=== PATIENT | female | born 1990 | race American Indian/Alaskan Native ===

== ENCOUNTER 2020-08-30 15:56 | Emergency (ER) | payer SELFPAY ==
[2020-08-30 17:24] LABS: Bacteria,Urine 1+ /HPF (Negative); Bilirubin,Urine NEG (Negative); Blood,Urine NEG (Negative); Color,Urine Yellow (Yellow); Protein,Urine <15 mg/dL mg/dL (Negative); Urobilinogen,Urine < 2.0 mg/dL (<2.0)
[2020-08-30 17:31] LABS: HCG Qualitative,Urine Negative (Negative)
[2020-08-30 17:51] VITALS: BP 121/76
--- NOTE | 2020-08-30 17:54 | Emergency Department Report ---
ED Female HPI - General Chief complaint: Urogenital-Female Stated complaint: UTI Time Seen by Provider: 08/30/20 16:28 Source: patient Mode of arrival: Ambulatory Limitations: No Limitations - History of Present Illness Initial comments: Patient is a 30-year-old female presents emergency room complaints of a possible urinary tract infection. She states that she began having urinary frequency and dark urine 3 days ago. She states that she feels little mild pressure in the suprapubic region upon urination. She denies any dysuria, abnormal vaginal discharge, itching, burning, fever, vomiting, diarrhea, back pain. No past medical history. No allergies medications. Last menstrual cycle 08/12/2020. - Related Data Previous Rx's Medication Instructions Recorded Last Taken Type Phenazopyridine [Pyridium] 100 mg PO TID #12 tab 08/30/20 Unknown Rx Allergies Allergy/AdvReac Type Severity Reaction Status Date / Time No Known Allergies Allergy Unverified 08/30/20 16:15 ED Review of Systems ROS: Stated complaint: UTI Other details as noted in HPI Comment: All other systems reviewed and negative ED Past Medical Hx - Past Medical History Previous Medical History?: No - Surgical History Past Surgical History?: No - Social History Smoking Status: Never Smoker Substance Use Type: None - Medications Home Medications: Home Medications Medication Instructions Recorded Confirmed Last Taken Type Phenazopyridine [Pyridium] 100 mg PO TID #12 tab 08/30/20 Unknown Rx ED Physical Exam - General Limitations: No Limitations General appearance: alert, in no apparent distress - Head Head exam: Present: atraumatic, normocephalic - Eye Eye exam: Present: normal appearance - ENT ENT exam: Present: mucous membranes moist - Respiratory Respiratory exam: Present: normal lung sounds bilaterally. Absent: respiratory distress, wheezes, rales, rhonchi, stridor, chest wall tenderness, accessory muscle use, decreased breath sounds, prolonged expiratory - Cardiovascular Cardiovascular Exam: Present: regular rate, normal rhythm, normal heart sounds. Absent: systolic murmur, diastolic murmur, rubs, gallop - GI/Abdominal GI/Abdominal exam: Present: soft, normal bowel sounds. Absent: distended, tenderness, guarding, rebound, rigid - Neurological Exam Neurological exam: Present: alert, oriented X3 - Psychiatric Psychiatric exam: Present: normal affect, normal mood - Skin Skin exam: Present: warm, dry, intact ED Course Vital Signs 08/30/20 16:11 Temperature 99.0 F Pulse Rate 82 Respiratory 16 Rate Blood Pressure 121/76 O2 Sat by Pulse 99 Oximetry ED Medical Decision Making - Lab Data Labs 08/30/20 16:30 Urine Color Yellow Urine Turbidity Slightly-cloudy Urine pH 6.0 Ur Specific [place] 1.012 Urine Protein <15 mg/dl Urine Glucose (UA) Neg Urine Ketones Neg Urine Blood Neg Urine Nitrite Neg Urine Bilirubin Neg Urine Urobilinogen < 2.0 Ur Leukocyte Esterase Tr Urine WBC (Auto) 3.0 Urine RBC (Auto) 1.0 U Epithel Cells (Auto) 2.0 Urine Bacteria (Auto) 1+ Urine HCG, Qual Negative - Medical Decision Making Patient is a 30-year-old female presents emergency room complaints of a possible urinary tract infection. She states that she began having urinary frequency and dark urine 3 days ago. She states that she feels little mild pressure in the suprapubic region upon urination. She denies any dysuria, abnormal vaginal discharge, itching, burning, fever, vomiting, diarrhea, back pain. No past medical history. No allergies medications. Last menstrual cycle 08/12/2020. Vitals are normal. UA without evidence of significant UTI. Urine is negative. Given prescription for Pyridium. Advised patient Please take medication as prescribed. Medication may turn your urine orange this is normal. Increase your water intake over the next several days. Follow-up with your primary care doctor. Return to emergency room for any new or worsening symptoms. Critical care attestation.: If time is entered above; I have spent that time in minutes in the direct care of this critically ill patient, excluding procedure time. ED Disposition Clinical Impression: Urinary frequency Disposition: DC-01 TO HOME OR SELFCARE Is pt being admited?: No Does the pt Need Aspirin: No Condition: Stable Instructions: Urinary Frequency, Adult Additional Instructions: Please take medication as prescribed. Medication may turn your urine orange this is normal. Increase your water intake over the next several days. Follow- up with your primary care doctor. Return to emergency room for any new or worsening symptoms. Prescriptions: Phenazopyridine [Pyridium] 100 mg PO TID #12 tab Referrals: [facility] [Provider Group] - 2-3 Days AMRITA CASTAÑEDA MD [Staff Physician] - 2-3 Days Time of Disposition: 17:52 Print Language: BELARUSIAN
== END 2020-08-30 18:17 | disposition home or self-care (01) ==
LOC: ED 15:56
DX: R35.0 Frequency of micturition (principal); Z79.899 Other long term (current) drug therapy
CPT/HCPCS: 81001; 81025